=== PATIENT | female | born 1990 | race Two or more races ===

== ENCOUNTER 2021-05-02 19:58 | Emergency (ER) | payer BC, OTHER ==
[2021-05-02 20:24] VITALS: BP 127/86; PULSE 86; TEMP 98.3; BMI 29.2
== END 2021-05-02 21:39 | disposition home or self-care (01) ==
LOC: JER 19:58
DX: R09.81 Nasal congestion (principal); Z20.822 Contact with and (suspected) exposure to COVID-19
CPT/HCPCS: 99283-25; C9803; U0003; U0005